=== PATIENT | female | born 1955 | race Caucasian/White ===

== ENCOUNTER 2016-12-07 15:46 | Emergency (ER) | payer MEDICARE ==
[2016-12-07 16:04] VITALS: O2SAT 95
--- NOTE | 2016-12-07 16:14 | ERPHSYRPT ---
- History of Present Illness Time Seen by Provider: 12/07/16 15:50 Source: patient, family, old records Exam Limitations: no limitations Patient Subjective Stated Complaint: PT STATES THAT SHE HAS HAD CONFUSION FOR AT LEAST A WEEK-STATES THAT SHE SPILLED HER MILKSHAKE TWICE TODAY-DENIES UNUSUAL PAIN-DENIES NUMBNES OR TINLGING Triage Nursing Assessment: PT ALERT ET ANSWERING QUESTIONS-PUPILS RESPONSIVE-PT MOVING ALL EXTREMITIES WITH EASE Physician History: patient has been falling asleep much more then usual; doesn't sleep well at night. patient spilled milk shke in car today when fell asleep while riding in car; states confused but good memory and no defecits; is on dialysis; recent fall with fracture right wrist; no headache or visual changes; hx of diabetic neuropathies getting worse; no fver; no travel; no CP or SOB Timing/Duration: today, week(s) (several episodes of falling asleep this week), intermittent Severity: moderate Modifying Factors: Improves With: nothing Associated Symptoms: denies symptoms Allergies/Adverse Reactions: albuterol Allergy (Mild, Verified 10/05/16 08:35) Home Medications: Allopurinol 100 mg [Zyloprim 100 mg] 100 mg PO DAILY 10/27/12 [History] Calcitriol 0.25 mg PO UD 10/27/12 [History] Clopidogrel Bisulfate 75 mg [PLAVIX 75 MG Tablet] 75 mg PO DAILY 10/27/12 [ History] Doxycycline Hyclate 100 mg [Vibramycin 100 MG] 100 mg PO BID 10/27/12 [ History] Fenofibrate Nanocrystallized [Tricor] 48 mg PO DAILY 10/27/12 [History] Insulin Glargine,Hum.rec.anlog [Lantus] 50 unit SQ BID 10/27/12 [History] Insulin Lispro [Humalog] 35 units SQ TID 10/27/12 [History] Lisinopril 10 mg PO HS 10/27/12 [History] Magnesium Oxide 400 mg [Mag-Ox 400] 400 mg PO BID 10/27/12 [History] Metoprolol Tartrate 50 mg PO BID 10/27/12 [History] Niacin/Simvastatin [Simcor 500-20 mg Tablet] 500 mg PO HS 10/27/12 [History] Nitroglycerin [Nitrostat] 0.4 mg SL PRN 10/27/12 [History] Omeprazole [Prilosec] 20 mg PO DAILY 10/27/12 [History] Raloxifene HCl 60 mg [Evista 60 MG] 60 mg PO DAILY 10/27/12 [History] Rosuvastatin Calcium [Crestor] 10 mg PO HS 10/27/12 [History] Hydrocodone Bit/Acetaminophen [Vicodin Es 7.5-750 mg Tablet] 1 each PO Q4-6HPRN PRN 09/27/16 [History] Aspirin 81 mg PO DAILY 10/05/16 [History] Hx Tetanus, Diphtheria Vaccination/Date Given: No Hx Influenza Vaccination/Date Given: Yes Hx Pneumococcal Vaccination/Date Given: Yes Immunizations Up to Date: Yes - Review of Systems Constitutional: Lethargy Eyes: No Symptoms Ears, Nose, & Throat: No Symptoms Respiratory: No Cough, No Dyspnea, No Wheezing Cardiac: No Chest Pain, No Palpitations, No Syncope Abdominal/Gastrointestinal: No Abdominal Pain, No Nausea, No Vomiting, No Diarrhea Genitourinary Symptoms: No Dysuria, No Hematuria, No Incontinence, No Flank Pain Musculoskeletal: Injury (right wrist a month ago), No Back Pain, No Neck Pain, No Fall (no recent falls) Skin: No Symptoms Neurological: Parasthesia, Sensory Changes (diabetic neuropathy fo ryears), No Dizziness, No Focal Weakness, No Headache, No Seizure, No Vertigo Psychological: No Symptoms Endocrine: No Symptoms Hematologic/Lymphatic: No Symptoms Immunological/Allergic: No Symptoms - Past Medical History Pertinent Past Medical History: Yes Neurological History: Peripheral Neuropathy ENT History: Cataracts Cardiac History: Angina, High Cholesterol, Hypertension, Myocardial Infarction ( [place]), Other Respiratory History: Bronchitis, COPD Endocrine Medical History: Diabetes Type II, Hyperthyroidism Musculoskeletal History: Arthritis GI Medical History: GERD, Gallbladder Disease History: Dialysis, Renal Disease Psycho-Social History: Depression Female Reproductive Disorders: No Pertinent History Other Medical History: CHIROPRACTOR TOLD HER 12 YEARS AGO THAT SHE HAD DETERIORATIING DISCS AND WOULD NEED SURGERY. SHE NEVER DID FOLLOW THROUGH WITH SURGERY. WEARS A C-PAP AT [facility]; CAN'T WALK ANY DISTANCE HOWEVER NOT ON HOME 02 YET. HAS HAD 4 [address] BY-PASS AND HAS 8 STENTS; PACEMAKER AND DEFIBRILLATOR; O.A. IN BOTH HANDS, LEFT MIDDLE FINGER TRIGGER FINGER; HX OF BILATERAL ANKLE FRACTURES AT SAME TIME; HAS SINCE REFRACTURED ANKLE; RECENT FX PATELLA LEFT SECONDARY TO FALL; HAS DIALYSIS 3X/WK FOR 4 HOURS/DAY - Past Surgical History Past Surgical History: Yes Neuro Surgical History: No Pertinent History Cardiac: CABG, Cardiac Stent, Internal Defibrillator, Pacemaker Respiratory: Other Gastrointestinal: Cholecystectomy Genitourinary: Other Musculoskeletal: Orthopedic Surgery Female Surgical History: No Pertinent History, Section Other Surgical History: carpal tunnel. a/v fistula, catheter for dialysis, In E.R. 09/27/16 with fx right lower arm/wrist, Left knee cap (fx,shattered per pt) - Social History Smoking Status: Current every day smoker How long have you smoked: 30 Exposure to second hand smoke: Yes Alcohol Use: None Drug Use: none Patient Lives Alone: No Significant Family History: diabetes, hypertension - Nursing Vital Signs Nursing Vital Signs: Initial Vital Signs Temperature 98.7 F Temperature Source Oral Pulse Rate 66 Respiratory Rate 26 Blood Pressure [] 109/44 Pain Intensity 5 - Physical Exam General Appearance: mild distress, alert, obese Eye Exam: PERRL/EOMI, eyes nml inspection, other (vision grossly ok), No photophobia Ears, Nose, Throat Exam: TMs normal, pharynx normal, dry mucous membranes, other (excoriation with induration and open lesion left ear helix; slight tender ; no d/c), No normal ENT inspection Neck Exam: normal inspection, non-tender, supple, full range of motion, JVD ( mild), No meningismus Respiratory Exam: airway intact, diminished breath sounds, crackles/rales (few basilar rales dry), wheezing, No normal breath sounds, No chest tenderness, No lungs clear, No respiratory distress Cardiovascular Exam: regular rate/rhythm, normal heart sounds, normal peripheral pulses, capillary refill 2-3 sec, No murmur, No friction rub Gastrointestinal/Abdomen Exam: soft, normal bowel sounds, No tenderness, No mass , No guarding, No pulsatile mass, No rebound, No organomegaly Pelvic Exam: deferred Rectal Exam: deferred Back Exam: normal inspection, normal range of motion, No CVA tenderness Extremity Exam: normal range of motion (except right wrist in splint), pelvis stable, pedal edema, other (dialysis shunt right arm), No normal inspection ( right wrsit in splint with deformity), No camron's sign, No tenderness Neurologic Exam: alert, oriented x 3, cooperative, 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 as tested, normal mood/affect, nml station & gait, No sensation nml (peripheral neuropathy) Skin Exam: normal color, warm, dry, other (venous stasis changes legs; palpation of left temporal area didn't reveal any tenderness or crepitus), No rash SpO2 Interpretation: normal SpO2: 95 Oxygen Delivery: Room Air - Course Nursing assessment & vital signs reviewed: Yes - Radiology Exams Chest X-ray Interpretation: Reviewed by me, Teleradiologist Report, Other (CM w CHF) - CT Exams Head CT Interpretation: Negative, Tele-radiologist Report, Other (incidental note of bubbles along left temporalis muscle - clinically non-tender; no crepitus; no lesion or laceration) Ordered Tests: Active Orders 24 hr Category Date Time Status Accucheck STAT Care 12/07/16 16:06 Active Director Cardiovascular STAT Care 12/07/16 16:06 Active IV Insertion STAT Care 12/07/16 16:06 Active Pulse Oximetry (ED) STAT Care 12/07/16 16:06 Active Re-Check Vital Signs STAT Care 12/07/16 16:06 Active CHEST 1 VIEW (PORTABLE) Stat Exams 12/07/16 16:06 Completed HEAD WITHOUT CONTRAST [CT] Stat Exams 12/07/16 16:07 Completed BLOOD CULTURE Stat Lab 12/07/16 16:15 Received CBC W DIFF Stat Lab 12/07/16 16:00 Completed CMP Stat Lab 12/07/16 16:00 Completed MAGNESIUM Stat Lab 12/07/16 16:00 Completed Manual Differential NC Stat Lab 12/07/16 16:00 Completed NT PRO BNP Stat Lab 12/07/16 16:00 Completed PROTIME WITH INR Stat Lab 12/07/16 16:00 Completed TROPONIN Stat Lab 12/07/16 16:00 Completed UA Stat Lab 12/07/16 16:06 Ordered Lab/Rad Data: Laboratory Result Diagrams 12/07/16 16:00 12/07/16 16:00 Laboratory Results 12/07/16 12/07/16 12/07/16 Range/Units 16:00 16:00 16:00 WBC (4.0-10.5) K/mm3 RBC (4.1-5.4) M/mm3 Hgb (12.0-16.0) gm/dl Hct (35-47) % MCV (78-100) fl MCH (26-32) pg MCHC (32-36) g/dl RDW (11.5-14.0) % Plt Count (150-450) K/mm3 MPV (6-9.5) fl INR 1.17 (0.8-3.0) Sodium 138 (136-145) mEq/L Potassium 4.6 (3.5-5.1) mEq/L Chloride 96 L (98-107) mEq/L Carbon Dioxide 26.2 (21-32) mEq/L Anion Gap 20.3 H (5-15) MEQ/L BUN 43 H (9-20) mg/dL Creatinine 5.67 H (0.55-1.30) mg/dl Estimated GFR 8 ML/MIN Glucose 198 H (70-110) MG/DL Calcium 6.9 L (8.5-10.1) mg/dL Magnesium 1.9 (1.8-2.4) mg/dL Total Bilirubin 0.6 (0.2-1.0) mg/dL AST 27 (15-37) U/L ALT 14 (12-78) U/L Alkaline Phosphatase 375 H (46-116) U/L Troponin I 0.017 (0.000-0.056) ng/ml NT-Pro-B Natriuret Pep > 24722 H (0-125) pg/ml Serum Total Protein 7.1 (6.4-8.2) gm/dL Albumin 3.5 (3.4-5.0) g/dL 12/07/16 Range/Units 16:00 WBC 6.0 (4.0-10.5) K/mm3 RBC 2.97 L (4.1-5.4) M/mm3 Hgb 10.1 L (12.0-16.0) gm/dl Hct 31.0 L (35-47) % MCV 104.4 H (78-100) fl MCH 34.0 H (26-32) pg MCHC 32.6 (32-36) g/dl RDW 16.3 H (11.5-14.0) % Plt Count 62 L (150-450) K/mm3 MPV 11.8 H (6-9.5) fl INR (0.8-3.0) Sodium (136-145) mEq/L Potassium (3.5-5.1) mEq/L Chloride (98-107) mEq/L Carbon Dioxide (21-32) mEq/L Anion Gap (5-15) MEQ/L BUN (9-20) mg/dL Creatinine (0.55-1.30) mg/dl Estimated GFR ML/MIN Glucose (70-110) MG/DL Calcium (8.5-10.1) mg/dL Magnesium (1.8-2.4) mg/dL Total Bilirubin (0.2-1.0) mg/dL AST (15-37) U/L ALT (12-78) U/L Alkaline Phosphatase (46-116) U/L Troponin I (0.000-0.056) ng/ml NT-Pro-B Natriuret Pep (0-125) pg/ml Serum Total Protein (6.4-8.2) gm/dL Albumin (3.4-5.0) g/dL reviewed - Progress Progress: improved, re-examined (after CT) Progress Note: 12/07/16 16:16 family at bedside; lab and cT pending ; will recheck 12/07/16 16:[address] no change; CT pending; lab pending 12/07/16 17:17 recheck; no correlation between bubbles on CT and left temporal area; non-tneder ; no lesion; no crepitus; patient sitting up; awake and alert; ; labs shoe elevated BS 198; BUN =43; Cr 5.67; Alk Phos = 375; CT head no bleed or pressure changes 12/07/16 18:07 rechecked patient; sitting up awake; no distress; VS ok; discussed findings; Consulted DR Soto for DR Goss; Patient due for dialysis tomorrow; treatment plan to get dialysis and follow up with Dr Goss recheck; continue meds Discussed with .: Other (Dr Soto consulted) Will see patient in: office Counseled pt/family regarding: lab results, diagnosis, need for follow-up, rad results, smoking cessation - Departure Time of Disposition: 18:10 Departure Disposition: Home Clinical Impression: CHF (congestive heart failure), Fracture of right wrist, Left ear injury, Dementia, Renal failure Condition: Stable Critical Care Time: No Referrals: NATE AGARWAL [Primary Care Provider] - Instructions: Heart Failure, Alzheimer's Disease Additional Instructions: get dialysis in am; call Dr Goss for recheck; continue home meds Follow-up with family doctor as directed. Call for appointment. Return if any problems. If you smoke please stop. Call or follow up with your family doctor for assistance if you need it to stop. Please wear your seatbelt when driving. Have a nice day. Thank you for allowing us to participate in your care today. :o) Dr Aung Irizarry
[2016-12-07 16:27] LABS: Mean Cell Volume 104.4 fl (78-100); Mean Platelet Volume 11.8 fl (6-9.5); Platelet Count 62 K/mm3 (150-450); Red Blood Count 2.97 M/mm3 (4.1-5.4); Red Cell Distribution Width 16.3 % (11.5-14.0)
[2016-12-07 16:36] LABS: INR 1.17 (0.8-3.0)
[2016-12-07 16:45] LABS: ALBUMIN 3.5 g/dL (3.4-5.0); ANION GAP 20.3 MEQ/L (5-15); BILIRUBIN,TOTAL 0.6 mg/dL (0.2-1.0); Carbon Dioxide 26.2 mEq/L (21-32); MAGNESIUM 1.9 mg/dL (1.8-2.4); Potassium 4.6 mEq/L (3.5-5.1); Total Protein 7.1 gm/dL (6.4-8.2)
--- NOTE | 2016-12-07 16:51 | XRAY ---
Indication: Confusion. Generalized weakness. Comparison: November 23, 2014. AP chest again demonstrates cardiomegaly with previous CABG surgery. New central vascular congestion concerning for mild/early cardiac decompensation. Superimposed pneumonia not completely excluded. No consolidation or large effusion. Bony thorax intact again with mild osteopenia and degenerative changes. Impression: Stable cardiomegaly with new vascular congestion concerning for mild/early cardiac decompensation. Superimposed pneumonia not completely excluded.
[2016-12-07 16:54] LABS: TROPONIN 0.017 ng/ml (0.000-0.056)
--- NOTE | 2016-12-07 17:00 | XRAY ---
Indication: Confusion. Generalized weakness. Multiple contiguous axial images obtained through the head without contrast. Comparison: None Images through the base of the brain degraded by motion artifact even with repeat CT. Age-appropriate global atrophy. No acute intracranial hemorrhage, abnormal extra-axial fluid collection, or mass effect. Fourth ventricle midline without hydrocephalus. Velasco-white matter differentiation preserved. Bony calvarium intact. Visualized paranasal sinuses and mastoid air cells are pneumatized and clear. Several air bubbles seen along the course of the left temporalis muscle. Impression: 1. Base of the brain limited by motion artifact. 2. No acute intracranial abnormalities. 3. Incidental air bubbles along the course of the left temporalis muscle either posttraumatic versus gas producing infection. CTDI 67.22
[2016-12-07 18:22] VITALS: BP 115/69; PULSE 60
[2016-12-07 18:26] LABS: Bacteria PACKED /HPF (NEGATIVE); COMPLETE URINE MICROSCOPIC? YES; Collection Type CLEAN CATCH; Epithelial Cells MANY /HPF (FEW); Mucus MODERATE /HPF (NEGATIVE); WBC >100 /HPF (0-5)
[2016-12-07 19:29] LABS: ANISOCYTOSIS 1+; Eosinophil 2 % (0.00-3.0); Macrocytosis 1+; Platelet Estimate DECREASED (NORMAL); Total Cells Counted 100
== END 2016-12-07 18:18 | disposition home or self-care (01) ==
LOC: ED 15:46
DX: I50.9 Heart failure, unspecified (principal); S62.101A Fracture of unspecified carpal bone, right wrist, initial encounter for closed fracture; S09.91XA Unspecified injury of ear, initial encounter; F03.90 Unspecified dementia, unspecified severity, without behavioral disturbance, psychotic disturbance, mood disturbance, and anxiety; N19 Unspecified kidney failure; Z79.4 Long term (current) use of insulin; Z79.899 Other long term (current) drug therapy; E78.00 Pure hypercholesterolemia, unspecified; I10 Essential (primary) hypertension; I21.3 ST elevation (STEMI) myocardial infarction of unspecified site; E11.9 Type 2 diabetes mellitus without complications; E05.90 Thyrotoxicosis, unspecified without thyrotoxic crisis or storm; Z95.1 Presence of aortocoronary bypass graft; Z98.61 Coronary angioplasty status; Z95.0 Presence of cardiac pacemaker
CPT/HCPCS: 36000; 36415; 70450; 71010; 80053; 81000; 82962; 83735; 83880; 84484; 85025; 85610; 87040; 93041; 99284

== ENCOUNTER 2016-12-27 13:35 | Emergency (ER) | payer MEDICARE ==
[2016-12-27 13:45] VITALS: BP 107/69; PULSE 63; O2SAT 98
[2016-12-27] MEDS ORDERED: MORPHINE SULFATE 2 MG INJ IM ONE (13:55)
--- NOTE | 2016-12-27 13:59 | ERPHSYRPT ---
- History of Present Illness Time Seen by Provider: 12/27/16 13:55 Source: patient Patient Subjective Stated Complaint: pt alert and orietned x3, states she had surgery on foot a week agoand is not supposed to put pressure on it and she stepped down and then heard a pop and is now in extreme pain Triage Nursing Assessment: pt alert and oriented x3, lung soudns clear diminished, paid and buring in right foot, has a large boot over surgical area with sock covering , has feeling in toes responisve to stimuli on bottom of foot Physician History: Patient recently had right foot I&D of right foot for infection. Patient is to be non weight bearing,but try to walk on her toes to go the bathroom. States when she pivoted, she felt pain to the right foot/ankle area. Her right foot currently is wrapped so patient does not know if she had any swelling to the area. Denies any other injuries. Method of Injury: twisted Occurred: just prior to arrival Quality: burning, sharpness Severity of Pain-Max: moderate Severity of Pain-Current: moderate Lower Extremities Pain: foot: right, ankle: right Modifying Factors: Improves With: immobilization (improves), movement (worsens) Associated Symptoms: unable to bear weight Allergies/Adverse Reactions: albuterol Allergy (Mild, Verified 10/05/16 08:35) Home Medications: Allopurinol 100 mg [Zyloprim 100 mg] 100 mg PO DAILY 10/27/12 [History] Calcitriol 0.25 mg PO UD 10/27/12 [History] Clopidogrel Bisulfate 75 mg [PLAVIX 75 MG Tablet] 75 mg PO DAILY 10/27/12 [ History] Doxycycline Hyclate 100 mg [Vibramycin 100 MG] 100 mg PO BID 10/27/12 [ History] Fenofibrate Nanocrystallized [Tricor] 48 mg PO DAILY 10/27/12 [History] Insulin Glargine,Hum.rec.anlog [Lantus] 50 unit SQ BID 10/27/12 [History] Insulin Lispro [Humalog] 35 units SQ TID 10/27/12 [History] Lisinopril 10 mg PO HS 10/27/12 [History] Magnesium Oxide 400 mg [Mag-Ox 400] 400 mg PO BID 10/27/12 [History] Metoprolol Tartrate 50 mg PO BID 10/27/12 [History] Niacin/Simvastatin [Simcor 500-20 mg Tablet] 500 mg PO HS 10/27/12 [History] Nitroglycerin [Nitrostat] 0.4 mg SL PRN 10/27/12 [History] Omeprazole [Prilosec] 20 mg PO DAILY 10/27/12 [History] Raloxifene HCl 60 mg [Evista 60 MG] 60 mg PO DAILY 10/27/12 [History] Rosuvastatin Calcium [Crestor] 10 mg PO HS 10/27/12 [History] Hydrocodone Bit/Acetaminophen [Vicodin Es 7.5-750 mg Tablet] 1 each PO Q4-6HPRN PRN 09/27/16 [History] Aspirin 81 mg PO DAILY 10/05/16 [History] Hx Tetanus, Diphtheria Vaccination/Date Given: Yes Hx Influenza Vaccination/Date Given: Yes Hx Pneumococcal Vaccination/Date Given: Yes Immunizations Up to Date: Yes - Past Medical History Pertinent Past Medical History: Yes Neurological History: Peripheral Neuropathy ENT History: Cataracts Cardiac History: Angina, High Cholesterol, Hypertension, Myocardial Infarction ( [place]), Other Respiratory History: Bronchitis, COPD Endocrine Medical History: Diabetes Type II, Hyperthyroidism Musculoskeletal History: Arthritis GI Medical History: GERD, Gallbladder Disease History: Dialysis, Renal Disease Psycho-Social History: Depression Female Reproductive Disorders: No Pertinent History Other Medical History: CHIROPRACTOR TOLD HER 12 YEARS AGO THAT SHE HAD DETERIORATIING DISCS AND WOULD NEED SURGERY. SHE NEVER DID FOLLOW THROUGH WITH SURGERY. WEARS A C-PAP AT [facility]; CAN'T WALK ANY DISTANCE HOWEVER NOT ON HOME 02 YET. HAS HAD 4 WAY BY-PASS AND HAS 8 STENTS; PACEMAKER AND DEFIBRILLATOR; O.A. IN BOTH HANDS, LEFT MIDDLE FINGER TRIGGER FINGER; HX OF BILATERAL ANKLE FRACTURES AT SAME TIME; HAS SINCE REFRACTURED ANKLE; RECENT FX PATELLA LEFT SECONDARY TO FALL; HAS DIALYSIS 3X/WK FOR 4 HOURS/DAY - Past Surgical History Past Surgical History: Yes Neuro Surgical History: No Pertinent History Cardiac: CABG, Cardiac Stent, Internal Defibrillator, Pacemaker Respiratory: Other Gastrointestinal: Cholecystectomy Genitourinary: Other Musculoskeletal: Orthopedic Surgery Female Surgical History: No Pertinent History, Section Other Surgical History: carpal tunnel. a/v fistula, catheter for dialysis, In E.R. 09/27/16 with fx right lower arm/wrist, Left knee cap (fx,shattered per pt) - Social History Smoking Status: Current every day smoker How long have you smoked: 30 Exposure to second hand smoke: Yes Alcohol Use: None Drug Use: none Patient Lives Alone: No Significant Family History: diabetes, hypertension - Nursing Vital Signs Nursing Vital Signs: Initial Vital Signs Temperature 97.7 F Temperature Source Oral Pulse Rate 63 Respiratory Rate 16 Blood Pressure [Left Arm] 107/69 Pain Intensity 10 - Physical Exam General Appearance: alert Eyes, Ears, Nose, Throat Exam: moist mucous membranes Neck Exam: non-tender, supple Cardiovascular/Respiratory Exam: chest non-tender, normal breath sounds, regular rate/rhythm, no respiratory distress Gastrointestinal/Abdominal Exam: non-tender, guarding Back Exam: normal inspection, No vertebral tenderness Ankle Exam: right ankle: limited range of motion, pain (lat. malleolus and posteriorly), soft tissue tenderness, swelling Foot Exam: right foot: pain (lat. hind foot), soft tissue tenderness (lat. hind foot), swelling Neuro/Tendon Exam: normal sensation, normal motor functions Mental Status Exam: alert, oriented x 3, cooperative Skin Exam: normal color, warm, dry SpO2 Interpretation: normal SpO2: 98 Oxygen Delivery: Room Air Ordered Tests: Active Orders 24 hr Category Date Time Status ANKLE (3 VIEWS) Stat Exams 12/27/16 13:59 Taken FOOT (MINIMUM 3 VIEWS) Stat Exams 12/27/16 13:54 Taken Medication Summary Discontinued Medications Generic Name Dose Route Start Last Admin Trade Name Margy PRN Reason Stop Dose Admin Morphine Sulfate 2 mg 12/27/16 13:55 12/27/16 14:05 Morphine Sulfate 2 Mg Inj IM 12/27/16 13:56 2 mg STAT ONE Administration Morphine Sulfate Confirm 12/27/16 14:03 Morphine Sulfate 2 Mg Inj Administered 12/27/16 14:04 Dose 2 mg .ROUTE .STK-MED ONE - Progress Progress: improved Progress Note: 12/27/16 14:59 Pt. given Morphine IM with good relief of her symptoms. Counseled pt/family regarding: diagnosis, rad results - Departure Time of Disposition: 14:59 Departure Disposition: Home Clinical Impression: Right ankle sprain, Right foot strain Condition: Stable Critical Care Time: No Instructions: Ankle Sprain Additional Instructions: Rest, ice, elevate, no weight bearing to decrease swelling/pain. Motrin 800mg every 8hrs with food Return for worse pain, swelling, numbness, tingling or any problems.
[2016-12-27] MEDS ORDERED: MORPHINE SULFATE 2 MG INJ ONE (14:03)
--- NOTE | 2016-12-27 21:07 | XRAY ---
Indication: Pain following injury. Comparison: October 20, 2013. 3 nonweightbearing views of the right foot demonstrates new posterior heel soft tissue deformity and mild forefoot soft tissue swelling presumed related to injury. Again osteopenia, posterior/plantar heel spurs, first MTP bunion deformity, lower leg vascular clips, and scattered vascular calcifications. Remaining right foot unremarkable.
--- NOTE | 2016-12-27 21:09 | XRAY ---
Indication: Pain following injury. Comparison: October 20, 2013. 3 views of the right ankle demonstrates new posterior heel soft tissue deformity presumed related to injury. Again posterior/plantar heel spurs, lower leg vascular clips, and scattered vascular calcifications. No other bony, articular, or soft tissue abnormalities.
== END 2016-12-27 15:13 | disposition home or self-care (01) ==
LOC: ED 13:35
DX: S93.401A Sprain of unspecified ligament of right ankle, initial encounter (principal); S93.601A Unspecified sprain of right foot, initial encounter; X50.1XXA Overexertion from prolonged static or awkward postures, initial encounter; Z79.899 Other long term (current) drug therapy; Z79.4 Long term (current) use of insulin; Z95.1 Presence of aortocoronary bypass graft; Z98.61 Coronary angioplasty status
CPT/HCPCS: 73610; 73630; 96372; 99283; J2270

== ENCOUNTER 2017-06-06 02:32 | Observation (INO) | payer MEDICARE ==
[2017-06-06] MEDS ORDERED: BENADRYL 50 MG/ML IV ONE (03:12)
[2017-06-06] MEDS ORDERED: Pepcid 20 MG VIAL IV ONE ×2 (03:12→03:19)
[2017-06-06] MEDS ORDERED: Hydromorphone 1 mg/ml Ampule IV ONE (03:12)
[2017-06-06] MEDS ORDERED: Zofran 4 MG/2 ML VIAL IV ONE (03:12)
--- NOTE | 2017-06-06 03:12 | ERPHSYRPT ---
- History of Present Illness Time Seen by Provider: 06/06/17 03:10 Historian: patient, family Exam Limitations: no limitations Physician History: pt had uneventful dialysis today and later developed pain with dry heaves; Timing/Duration: today Abdominal Pain Onset Location: RLQ, flank Pain Radiation: RLQ, flank Severity of Pain-Max: moderate Severity of Pain-Current: moderate Modifying Factors: Improves With: nothing Associated Symptoms: back, nausea, vomiting Previous symptoms: no prior history Allergies/Adverse Reactions: albuterol Allergy (Mild, Verified 10/05/16 08:35) Home Medications: Allopurinol 100 mg [Zyloprim 100 mg] 100 mg PO DAILY 10/27/12 [History] Calcitriol 0.25 mg PO UD 10/27/12 [History] Clopidogrel Bisulfate 75 mg [PLAVIX 75 MG Tablet] 75 mg PO DAILY 10/27/12 [ History] Doxycycline Hyclate 100 mg [Vibramycin 100 MG] 100 mg PO BID 10/27/12 [ History] Fenofibrate Nanocrystallized [Tricor] 48 mg PO DAILY 10/27/12 [History] Insulin Glargine,Hum.rec.anlog [Lantus] 50 unit SQ BID 10/27/12 [History] Insulin Lispro [Humalog] 35 units SQ TID 10/27/12 [History] Lisinopril 10 mg PO HS 10/27/12 [History] Magnesium Oxide 400 mg [Mag-Ox 400] 400 mg PO BID 10/27/12 [History] Metoprolol Tartrate 50 mg PO BID 10/27/12 [History] Niacin/Simvastatin [Simcor 500-20 mg Tablet] 500 mg PO HS 10/27/12 [History] Nitroglycerin [Nitrostat] 0.4 mg SL PRN 10/27/12 [History] Omeprazole [Prilosec] 20 mg PO DAILY 10/27/12 [History] Raloxifene HCl 60 mg [Evista 60 MG] 60 mg PO DAILY 10/27/12 [History] Rosuvastatin Calcium [Crestor] 10 mg PO HS 10/27/12 [History] Hydrocodone Bit/Acetaminophen [Vicodin Es 7.5-750 mg Tablet] 1 each PO Q4-6HPRN PRN 09/27/16 [History] Aspirin 81 mg PO DAILY 10/05/16 [History] Hx Tetanus, Diphtheria Vaccination/Date Given: Yes Hx Influenza Vaccination/Date Given: Yes Hx Pneumococcal Vaccination/Date Given: Yes - Review of Systems Constitutional: No Fever, No Chills Eyes: No Symptoms Ears, Nose, & Throat: No Symptoms Respiratory: No Cough, No Dyspnea Cardiac: No Chest Pain, No Edema, No Syncope Abdominal/Gastrointestinal: Abdominal Pain, Nausea, Vomiting, No Diarrhea Genitourinary Symptoms: No Dysuria Musculoskeletal: No Back Pain, No Neck Pain Skin: No Rash Neurological: No Dizziness, No Focal Weakness, No Sensory Changes Psychological: No Symptoms Endocrine: No Symptoms All Other Systems: Reviewed and Negative - Past Medical History Pertinent Past Medical History: Yes Neurological History: Peripheral Neuropathy ENT History: Cataracts Cardiac History: Angina, High Cholesterol, Hypertension, Myocardial Infarction ( [place]), Other Respiratory History: Bronchitis, COPD Endocrine Medical History: Diabetes Type II, Hyperthyroidism Musculoskeletal History: Arthritis GI Medical History: GERD, Gallbladder Disease History: Dialysis, Renal Disease Psycho-Social History: Depression Female Reproductive Disorders: No Pertinent History Other Medical History: CHIROPRACTOR TOLD HER 12 YEARS AGO THAT SHE HAD DETERIORATIING DISCS AND WOULD NEED SURGERY. SHE NEVER DID FOLLOW THROUGH WITH SURGERY. WEARS A C-PAP AT [facility]; CAN'T WALK ANY DISTANCE HOWEVER NOT ON HOME 02 YET. HAS HAD 4 WAY BY-PASS AND HAS 8 STENTS; PACEMAKER AND DEFIBRILLATOR; O.A. IN BOTH HANDS, LEFT MIDDLE FINGER TRIGGER FINGER; HX OF BILATERAL ANKLE FRACTURES AT SAME TIME; HAS SINCE REFRACTURED ANKLE; RECENT FX PATELLA LEFT SECONDARY TO FALL; HAS DIALYSIS 3X/WK FOR 4 HOURS/DAY - Past Surgical History Past Surgical History: Yes Neuro Surgical History: No Pertinent History Cardiac: CABG, Cardiac Stent, Internal Defibrillator, Pacemaker Respiratory: Other Gastrointestinal: Cholecystectomy Genitourinary: Other Musculoskeletal: Orthopedic Surgery Female Surgical History: No Pertinent History, Section Other Surgical History: carpal tunnel. a/v fistula, catheter for dialysis, In E.R. 09/27/16 with fx right lower arm/wrist, Left knee cap (fx,shattered per pt) - Social History Smoking Status: Current every day smoker How long have you smoked: 30 Exposure to second hand smoke: Yes Alcohol Use: None Drug Use: none Patient Lives Alone: No Significant Family History: diabetes, hypertension - Nursing Vital Signs Nursing Vital Signs: Initial Vital Signs Temperature 97.4 F 06/06/17 03:20 Pulse Rate 90 06/06/17 03:20 Respiratory Rate 24 06/06/17 03:20 Blood Pressure 160/70 06/06/17 03:20 O2 Sat by Pulse Oximetry 96 06/06/17 03:20 Pain Scale Pain Intensity 10 - Physical Exam General Appearance: no apparent distress, alert Eye Exam: PERRL/EOMI, eyes nml inspection Ears, Nose, Throat Exam: normal ENT inspection, pharynx normal, moist mucous membranes Neck Exam: normal inspection, non-tender, supple, full range of motion Respiratory Exam: normal breath sounds, lungs clear, No respiratory distress Cardiovascular Exam: regular rate/rhythm, normal heart sounds Gastrointestinal/Abdomen Exam: soft, No tenderness, No mass Back Exam: normal inspection, normal range of motion, No CVA tenderness, No vertebral tenderness Extremity Exam: normal inspection, normal range of motion, pelvis stable Neurologic Exam: alert, oriented x 3, cooperative, normal mood/affect, nml cerebellar function, sensation nml, No motor deficits Skin Exam: normal color, warm, dry - Course Nursing assessment & vital signs reviewed: Yes EKG Interpreted by Me: Sinus Rhythm, NORMAL AXIS, Non-specific ST Changes, Other (poor r wave progression) Ordered Tests: Active Orders 24 hr Category Date Time Status Clean Catch Urine Specimen STAT Care 06/06/17 03:12 Active EKG-ER Only STAT Care 06/06/17 03:12 Active IV Insertion STAT Care 06/06/17 03:12 Active ABDOMEN AND PELVIS W/0 CONTRAS [CT] Stat Exams 06/06/17 03:13 Taken AMYLASE Stat Lab 06/06/17 03:15 Completed BNP [NT PRO BNP] Stat Lab 06/06/17 04:32 Completed CBC W DIFF Stat Lab 06/06/17 03:15 Completed CMP Stat Lab 06/06/17 03:15 Completed CULTURE,URINE Stat Lab 06/06/17 03:40 Received HCG,QUALITATIVE SERUM Stat Lab 06/06/17 03:15 Completed LIPASE Stat Lab 06/06/17 03:15 Completed Lactic Acid Stat Lab 06/06/17 03:20 Completed Manual Differential NC Stat Lab 06/06/17 03:15 Completed Occult Blood,Stool Other Stat Lab 06/06/17 03:13 Uncollected TROPONIN Q3H Lab 06/06/17 03:15 Completed TROPONIN Q3H Lab 06/06/17 06:15 Ordered TROPONIN Q3H Lab 06/06/17 09:15 Ordered TROPONIN Q3H Lab 06/06/17 12:15 Ordered TROPONIN Q3H Lab 06/06/17 15:15 Ordered UA W/ MICROSCOPIC Stat Lab 06/06/17 03:40 Completed Medication Summary Generic Name Dose Route Start Last Admin Trade Name Freq PRN Reason Stop Dose Admin Sodium Chloride 1,000 mls @ 50 mls/hr 06/06/17 03:15 06/06/17 03:23 Sodium Chloride 0.9% 1000 Ml IV 07/06/17 03:14 50 mls/hr .Q20H OLENA Administration Ceftriaxone Sodium/Dextrose 1 g in 50 mls @ 100 mls/hr 06/06/17 05:01 05:13 Rocephin 1 Gm-D5w 50 Ml Bag IV 06/06/17 05:30 100 mls/hr STAT STA Administration Discontinued Medications Generic Name Dose Route Start Last Admin Trade Name Freq PRN Reason Stop Dose Admin Diphenhydramine HCl 25 mg 06/06/17 03:12 06/06/17 03:23 Benadryl 50 Mg/Ml IV 06/06/17 03:13 25 mg STAT ONE Administration Diphenhydramine HCl Confirm 06/06/17 03:19 Benadryl 50 Mg/Ml Administered 06/06/17 03:20 Dose 50 mg .ROUTE .STK-MED ONE Famotidine 20 mg 06/06/17 03:12 06/06/17 03:23 Pepcid 20 Mg Vial IV 06/06/17 03:13 20 mg STAT ONE Administration Famotidine Confirm 06/06/17 03:19 Pepcid 20 Mg Vial Administered 06/06/17 03:20 Dose 20 mg IV .STK-MED ONE Hydromorphone HCl 0.5 mg 06/06/17 03:12 06/06/17 03:23 Hydromorphone 1 Mg/Ml Ampule IV 06/06/17 03:13 0.5 mg STAT ONE Administration Hydromorphone HCl Confirm 06/06/17 03:20 Hydromorphone 1 Mg/Ml Ampule Administered 06/06/17 03:21 Dose 1 mg .ROUTE .STK-MED ONE Ceftriaxone Sodium/Dextrose Confirm 06/06/17 05:10 Rocephin 1 Gm-D5w 50 Ml Bag Administered 06/06/17 05:11 Dose 1 g in 50 mls @ ud IV .STK-MED ONE Ondansetron HCl 4 mg 06/06/17 03:12 06/06/17 03:23 Zofran 4 Mg/2 Ml Vial IV 06/06/17 03:13 4 mg STAT ONE Administration Ondansetron HCl Confirm 06/06/17 03:19 Zofran 4 Mg/2 Ml Vial Administered 06/06/17 03:20 Dose 4 mg .ROUTE .STK-MED ONE Lab/Rad Data: Laboratory Result Diagrams 06/06/17 03:15 06/06/17 03:15 Laboratory Results 06/06/17 06/06/17 06/06/17 Range/Units 04:32 03:40 03:20 WBC (4.0-10.5) K/mm3 RBC (4.1-5.4) M/mm3 Hgb (12.0-16.0) gm/dl Hct (35-47) % MCV (78-100) fl MCH (26-32) pg MCHC (32-36) g/dl RDW (11.5-14.0) % Plt Count (150-450) K/mm3 MPV (6-9.5) fl Segmented Neutrophils (36.0-66.0) % Lymphocytes (Manual) (24-44) % Monocytes (Manual) (0.0-12.0) % Differential Comment Platelet Estimate (NORMAL) Sodium (136-145) mEq/L Potassium (3.5-5.1) mEq/L Chloride (98-107) mEq/L Carbon Dioxide (21-32) mEq/L Anion Gap (5-15) MEQ/L BUN (9-20) mg/dL Creatinine (0.55-1.30) mg/dl Estimated GFR ML/MIN Glucose (70-110) MG/DL Lactic Acid 1.7 (0.4-2.0) Calcium (8.5-10.1) mg/dL Total Bilirubin (0.2-1.0) mg/dL AST (15-37) U/L ALT (12-78) U/L Alkaline Phosphatase (46-116) U/L Troponin I (0.000-0.056) ng/ml NT-Pro-B Natriuret Pep > 04268 H (0-125) pg/ml Serum Total Protein (6.4-8.2) gm/dL Albumin (3.4-5.0) g/dL Amylase (25-115) U/L Lipase (73-393) U/L Ur Collection Type CLEAN CATCH Urine Color BROWN (YELLOW) Urine Appearance CLOUDY (CLEAR) Urine pH 8.0 (5-6) Ur Specific Exmore 1.010 (1.005-1.025) Urine Protein 500 (Negative) Urine Ketones NEGATIVE (NEGATIVE) Urine Blood 250 (0-5) Eduardo/ul Urine Nitrite NEGATIVE (NEGATIVE) Urine Bilirubin NEGATIVE (NEGATIVE) Urine Urobilinogen NORMAL (0-1) mg/dL Ur Leukocyte Esterase 2+ (NEGATIVE) Urine Microscopic RBC 25-50 (0-2) /HPF Urine Microscopic WBC >100 (0-5) /HPF Ur Epithelial Cells FEW (FEW) /HPF Urine Bacteria MODERATE (NEGATIVE) /HPF Urine Mucus MANY (NEGATIVE) /HPF Urine Glucose NEGATIVE (NEGATIVE) mg/dL Specimen Received 06/06/17:0340 06/06/17 06/06/17 06/06/17 Range/Units 03:15 03:15 03:15 WBC 10.0 (4.0-10.5) K/mm3 RBC 3.98 L (4.1-5.4) M/mm3 Hgb 11.9 L (12.0-16.0) gm/dl Hct 38.0 (35-47) % MCV 95.5 (78-100) fl MCH 29.8 (26-32) pg MCHC 31.3 L (32-36) g/dl RDW 17.1 H (11.5-14.0) % Plt Count 53 L (150-450) K/mm3 MPV 12.6 H (6-9.5) fl Segmented Neutrophils 82 H (36.0-66.0) % Lymphocytes (Manual) 9 L (24-44) % Monocytes (Manual) 9 (0.0-12.0) % Differential Comment NORMAL Platelet Estimate DECREASED (NORMAL) Sodium 133 L (136-145) mEq/L Potassium 5.0 (3.5-5.1) mEq/L Chloride 95 L (98-107) mEq/L Carbon Dioxide 27.0 (21-32) mEq/L Anion Gap 17.2 H (5-15) MEQ/L BUN 30 H (9-20) mg/dL Creatinine 4.77 H (0.55-1.30) mg/dl Estimated GFR 10 ML/MIN Glucose 153 H (70-110) MG/DL Lactic Acid (0.4-2.0) Calcium 9.1 (8.5-10.1) mg/dL Total Bilirubin 1.00 (0.2-1.0) mg/dL AST 36 (15-37) U/L ALT 13 (12-78) U/L Alkaline Phosphatase 222 H (46-116) U/L Troponin I 0.022 (0.000-0.056) ng/ml NT-Pro-B Natriuret Pep (0-125) pg/ml Serum Total Protein 7.5 (6.4-8.2) gm/dL Albumin 3.5 (3.4-5.0) g/dL Amylase 52 (25-115) U/L Lipase 87 (73-393) U/L Ur Collection Type Urine Color (YELLOW) Urine Appearance (CLEAR) Urine pH (5-6) Ur Specific Exmore (1.005-1.025) Urine Protein (Negative) Urine Ketones (NEGATIVE) Urine Blood (0-5) Eduardo/ul Urine Nitrite (NEGATIVE) Urine Bilirubin (NEGATIVE) Urine Urobilinogen (0-1) mg/dL Ur Leukocyte Esterase (NEGATIVE) Urine Microscopic RBC (0-2) /HPF Urine Microscopic WBC (0-5) /HPF Ur Epithelial Cells (FEW) /HPF Urine Bacteria (NEGATIVE) /HPF Urine Mucus (NEGATIVE) /HPF Urine Glucose (NEGATIVE) mg/dL Specimen Received - Progress Progress: improved, re-examined Progress Note: 06/06/17 05:28 contacted [facility] for transfer , which was effectively declined by ER as the Dr felt the pt could be trended on troponins here; I explained that our Dr.s are not in house - we have no hospitalists and that we felt best for the pt to be where there were cardiologists available and renal Drs in this case . Dr. Rolle was contacted and she accepted the pt here - will place in ICU. Discussed with : Sariah (dr rolle accepted pt her at [place]), Other ([facility] ER - preferred for us to keep pt. ) Will see patient in: hospital (observation) Counseled pt/family regarding: lab results, diagnosis, need for follow-up, rad results - Departure Time of Disposition: 05:32 Departure Disposition: Observation Clinical Impression: intractable vomiting SP dialysis, Elevated troponin Condition: Good Critical Care Time: No Referrals: NATE AGARWAL [Primary Care Provider] -
[2017-06-06] MEDS ORDERED: Zofran 4 MG/2 ML VIAL ONE (03:19)
[2017-06-06] MEDS ORDERED: BENADRYL 50 MG/ML ONE (03:19)
[2017-06-06] MEDS ORDERED: Sodium Chloride 0.9% 1000 ML 1,000 ML ONE (03:20)
[2017-06-06] MEDS ORDERED: Hydromorphone 1 mg/ml Ampule ONE (03:20)
[2017-06-06] MEDS: Sodium Chloride 0.9% 1000 ML 1,000 ML IV SCH ×2 (03:23→22:39)
[2017-06-06 03:24] LABS: Mean Cell Volume 95.5 fl (78-100); Mean Platelet Volume 12.6 fl (6-9.5); Platelet Count 53 K/mm3 (150-450); Red Blood Count 3.98 M/mm3 (4.1-5.4); Red Cell Distribution Width 17.1 % (11.5-14.0)
[2017-06-06 03:46] LABS: ALBUMIN 3.5 g/dL (3.4-5.0)
[2017-06-06 03:53] LABS: Mean Corpuscular Hemoglobin 29.8 pg (26-32)
[2017-06-06 04:01] LABS: Collection Type CLEAN CATCH; Leukocyte Esterase 2+ (NEGATIVE)
[2017-06-06 04:02] LABS: ADD URINE CULTURE? YES (NO); Bacteria MODERATE /HPF (NEGATIVE); Bilirubin NEGATIVE (NEGATIVE); Blood 250 Ery/ul (0-5); COMPLETE URINE MICROSCOPIC? YES; Epithelial Cells FEW /HPF (FEW); Glucose NEGATIVE (NEGATIVE); Mucus MANY /HPF (NEGATIVE); WBC >100 /HPF (0-5)
[2017-06-06 04:07] LABS: ANION GAP 17.2 MEQ/L (5-15); Total Protein 7.5 gm/dL (6.4-8.2)
[2017-06-06 04:31] LABS: Platelet Estimate DECREASED (NORMAL); Total Cells Counted 100
[2017-06-06] MEDS ORDERED: ROCEPHIN 1 Gm-D5w 50 ml Bag** 1 G/50 ML IVPB IV STA (05:01)
[2017-06-06] MEDS ORDERED: ROCEPHIN 1 Gm-D5w 50 ml Bag** 1 G/50 ML IVPB IV ONE (05:10)
[2017-06-06] MEDS ORDERED: Zofran 4 MG/2 ML VIAL IV PRN (06:19)
[2017-06-06] MEDS ORDERED: MILK OF MAGNESIA 30 ML PO PRN (06:19)
[2017-06-06] MEDS ORDERED: TYLENOL 325 MG PO PRN (06:19)
[2017-06-06] MEDS ORDERED: MAALOX ES 30 ML UNIT DOSE PO PRN (06:19)
[2017-06-06] MEDS ORDERED: Senokot-S Tablet PO PRN (06:19)
[2017-06-06] MEDS ORDERED: NovoLIN R SQ PRN (06:19)
--- NOTE | 2017-06-06 08:14 | XRAY ---
Indication: Right lower quadrant and right flank pain following dialysis. Multiple contiguous axial images obtained through the abdomen and pelvis without contrast as ordered. Comparison: June 13, 2013. Lung bases demonstrates worsening cardiomegaly with now pulmonary edema and tiny right base effusion. Again anasarca. There is increasing moderate abdominal and pelvic ascites. No walled off fluid collection or free air. Stable bilateral renal atrophy, vascular calcifications, and left mid renal exophytic cyst. Again previous cholecystectomy. Remaining liver, spleen, adrenal glands, ureters, bladder, and uterus appear unremarkable for noncontrast exam. There remains moderate aortoiliac calcifications without AAA. Osseous structures intact again with degenerative changes throughout the spine. There is now a midline fluid filled epigastric ventral hernia. Impression: 1. Worsening abdominal/pelvic ascites. 2. New small epigastric ventral hernia. 3. Stable bilateral renal atrophy and scattered vascular calcifications presumed relating to chronic medical renal disease. 4. Stable left renal cyst. 5. Worsening cardiomegaly with again anasarca and new tiny right effusion concerning for cardiac decompensation. Comment: Preliminary interpretation was made by [facility]. No discrepancy. CTDI 23.62
--- NOTE | 2017-06-06 11:46 | PCM.HP ---
History of Present Illness - Chief Complaint Chief Complaint: UTI History of Present Illness: is a 62 year old female. Medications & Allergies Home Medications: Home Medication List Allopurinol 100 mg [Zyloprim 100 mg] 100 mg PO DAILY 10/27/12 [History Confirmed 10/05/16] Calcitriol 0.25 mg PO UD 10/27/12 [History Confirmed 10/05/16] Clopidogrel Bisulfate 75 mg [PLAVIX 75 MG Tablet] 75 mg PO DAILY 10/27/12 [ History Confirmed 10/05/16] Doxycycline Hyclate 100 mg [Vibramycin 100 MG] 100 mg PO BID 10/27/12 [ History Confirmed 10/05/16] Fenofibrate Nanocrystallized [Tricor] 48 mg PO DAILY 10/27/12 [History Confirmed 10/05/16] Insulin Glargine,Hum.rec.anlog [Lantus] 50 unit SQ BID 10/27/12 [History Confirmed 10/05/16] Insulin Lispro [Humalog] 35 units SQ TID 10/27/12 [History Confirmed 10/05/16] Lisinopril 10 mg PO HS 10/27/12 [History Confirmed 10/05/16] Magnesium Oxide 400 mg [Mag-Ox 400] 400 mg PO BID 10/27/12 [History Confirmed 10/05/16] Metoprolol Tartrate 50 mg PO BID 10/27/12 [History Confirmed 10/05/16] Niacin/Simvastatin [Simcor 500-20 mg Tablet] 500 mg PO HS 10/27/12 [History Confirmed 10/05/16] Nitroglycerin [Nitrostat] 0.4 mg SL PRN 10/27/12 [History Confirmed 10/27/12] Omeprazole [Prilosec] 20 mg PO DAILY 10/27/12 [History Confirmed 10/05/16] Raloxifene HCl 60 mg [Evista 60 MG] 60 mg PO DAILY 10/27/12 [History Confirmed 10/05/16] Rosuvastatin Calcium [Crestor] 10 mg PO HS 10/27/12 [History Confirmed 10/05/16] Naproxen 375 mg [Naprosyn 375 mg] 375 mg PO Q8H #30 tablet 09/26/16 [Rx Confirmed 10/05/16] Hydrocodone Bit/Acetaminophen [Vicodin Es 7.5-750 mg Tablet] 1 each PO Q4-6HPRN PRN 09/27/16 [History Confirmed 10/05/16] Aspirin 81 mg PO DAILY 10/05/16 [History Confirmed 10/05/16] Allergies/Adverse Reactions: Allergies Allergy/AdvReac Type Severity Reaction Status Date / Time albuterol Allergy Mild Verified 10/05/16 08:35 - Past Medical History Past Medical History: Yes Neurological History: Peripheral Neuropathy ENT History: Cataracts Cardiac History: Angina, High Cholesterol, Hypertension, Myocardial Infarction ( [place]), Other Respiratory History: Bronchitis, COPD Endocrine Medical History: Diabetes Type II, Hyperthyroidism Musculoskelatal History: Arthritis GI Medical History: GERD, Gallbladder Disease History: Dialysis, Renal Disease Pyscho-Social History: Depression Reproductive Disorders: No Pertinent History Comment: HAS HAD 4 WAY BY-PASS AND HAS 8 STENTS; O.A. IN BOTH HANDS, LEFT MIDDLE FINGER TRIGGER FINGER; HX OF BILATERAL ANKLE FRACTURES AT SAME TIME; HAS SINCE REFRACTURED ANKLE; RECENT FX PATELLA LEFT SECONDARY TO FALL; HAS DIALYSIS 3X/WK FOR 4 HOURS/DAY. fistula to left wrist with wrist deformation due to fall - Female History Hx Last Menstrual Period: na Are you now?: No - Past Surgical History Past Surgical History: Yes Neuro Surgical History: No Pertinent History Cardiac History: CABG, Cardiac Stent, Internal Defibrillator, Pacemaker Respiratory Surgery: Other GI Surgical History: Cholecystectomy Genitourinary Surgical Hx: Other Musculskeletal Surgical Hx: Orthopedic Surgery Female Surgical History: No Pertinent History, Section Other Surgical History: carpal tunnel. a/v fistula, catheter for dialysis, In E.R. 09/27/16 with fx right lower arm/wrist, Left knee cap (fx,shattered per pt) - Social History Smoking Status: Current every day smoker How long have you smoked: 30 Exposure to second hand smoke: Yes Alcohol: None Drug Use: none Significant Family History: diabetes, hypertension - Physical Exam Vital Signs: Vital Signs - 24 hr Temp Pulse Resp BP Pulse Ox 06/06/17 11:37 100 H 20 97 06/06/17 10:00 97.8 F 87 20 141/90 98 06/06/17 08:00 97.8 F 92 H 20 128/77 98 06/06/17 07:52 97.8 F 85 20 135/77 96 06/06/17 06:42 97.8 F 85 21 118/69 100 Oxygen-Last 24 hours O2 Percentage 3 Liters = 32% O2 Percentage 3 Liters = 32% O2 Percentage 3 Liters = 32% O2 Percentage 3 Liters = 32% Results - Labs Lab/Micro Results: Accuchecks Date 06/06/17 Time 06:59 Accucheck Value: 146 Lab Results-Last 24 Hours 06/06/17 06/06/17 Range/Units 06:27 09:14 Troponin I 0.022 0.023 (0.000-0.056) ng/ml Accuchecks Date 06/06/17 Time 06:59 Accucheck Value: 146 - Other Procedures and Tests Respiratory Therapy 06/06/17 11:37 Oxygen NASAL CANNULA 3 lpm 06/07/17 05:00 EKG ONCE 06/08/17 05:00 EKG ONCE 06/09/17 05:00 EKG ONCE Assessment/Plan (1) Abdominal pain Current Visit: Yes Status: Acute Assessment & Plan: suprapubic pain radiating to RLQ. However, RUQ is tender on exam. She thinks she no longer has her gallbladder. Treating for in the hopes that will improve her abdominal pain. CT abd/pelvis without acute findings. Code(s): R10.9 - UNSPECIFIED ABDOMINAL PAIN (2) Vomiting Current Visit: Yes Status: Acute Qualifiers: Vomiting type: unspecified Vomiting Intractability: intractable Nausea presence: with nausea Qualified Code(s): R11.2 - Nausea with vomiting, unspecified Assessment & Plan: She is currently trying to tolerate ice chips. Code(s): R11.10 - VOMITING, UNSPECIFIED (3) UTI (urinary tract infection) Current Visit: Yes Status: Acute Qualifiers: Urinary tract infection type: acute cystitis Hematuria presence: with hematuria Qualified Code(s): N30.01 - Acute cystitis with hematuria Assessment & Plan: She does not produce much urine as she's on dialysis and she states she doesn't drink much, but she did give a UA and it does have numerous WBC in it, so I will go ahead and run a Urine culture and keep her on IV rocephin. Code(s): N39.0 - URINARY TRACT INFECTION, SITE NOT SPECIFIED (4) Renal failure Current Visit: No Status: Acute Qualifiers: Renal failure chronicity: chronic Chronic kidney disease stage: on chronic dialysis Qualified Code(s): N18.6 - End stage renal disease; Z99.2 - Dependence on renal dialysis Assessment & Plan: She is scheduled for dialysis Wednesday (06/08/17).
[2017-06-06] MEDS: Ecotrin 325 MG PO SCH (12:59)
[2017-06-06] MEDS ORDERED: MORPHINE SULFATE 4 MG INJ IV PRN (16:08)
[2017-06-06] MEDS ORDERED: ROCEPHIN 1 Gm-D5w 50 ml Bag** 1 G/50 ML IVPB IV SCH (22:00)
[2017-06-07] MEDS: Norco 10/325 MG Tablet PO PRN ×2 (00:05→06:20)
--- NOTE | 2017-06-07 10:54 | PCM.DS ---
Discharge Summary Date of Admission: 06/06/17 05:53 Admitting Physician: FREDY MELENDEZ Primary Care Provider: NATE BAE Allergies Allergies albuterol Allergy (Mild, Verified 10/05/16 08:35) Hospital Summary - Hospital Course Hospital Course: 62 year old female reports to the emergency department with nausea and dry heaves following dialysis. She has chronic renal failure and has dialysis on Tu/Thur/Sat. She is tolerating po intake now, has no further nausea and wants to go home today. She refuses the thought of transfer to [facility] or [place] for dialysis, states she wants to go home and have her regular scheduled dialysis in [place] tomorrow. - Vitals & Intake/Output Vital Signs: Vital Signs Temperature 97.7 F 06/07/17 08:00 Pulse Rate 86 06/07/17 08:00 Respiratory Rate 18 06/07/17 08:00 Blood Pressure 116/45 06/07/17 08:00 O2 Sat by Pulse Oximetry 98 06/07/17 08:00 Oxygen-Last Documented O2 Percentage 3 Liters = 32% Intake & Output: Intake & Output 06/04/17 06/05/17 06/06/17 06/07/17 11:59 11:59 11:59 11:59 Intake Total 720 Output Total 20 Balance 700 Weight 94.1 kg - Lab Result Diagrams: 06/06/17 03:15 06/06/17 03:15 Lab Results-Last 24 Hrs: Accuchecks Date 06/07/17 Date 06/06/17 Date 06/06/17 Date 06/06/17 Time 06:37 Time 21:34 Time 16:53 Time 11:51 Accucheck Value: 98 Accucheck Value: 111 Accucheck Value: 151 Accucheck Value: 135 Lab Results-Last 24 Hours 06/06/17 06/06/17 06/07/17 Range/Units 12:15 15:29 05:00 Troponin I 0.026 0.028 (0.000-0.056) ng/ml Triglycerides 86 (30-200) mg/dL Cholesterol 103 (100-200) mg/dL LDL Cholesterol 51 (5-99) mg/dL HDL Cholesterol 31 L (35-60) mg/dL Heart Disease Risk Ratio 3.3 Micro Results-Entire Visit: Accuchecks Date 06/07/17 Date 06/06/17 Date 06/06/17 Date 06/06/17 Time 06:37 Time 21:34 Time 16:53 Time 11:51 Accucheck Value: 98 Accucheck Value: 111 Accucheck Value: 151 Accucheck Value: 135 - Procedures and Test Procedures and Tests throughout Hospitalization: Therapy Orders & Screens 06/06/17 11:30 EKG ONCE Comment: 06/06/17 11:37 Oxygen NASAL CANNULA 3 lpm Comment: Diagnosis: UTI 06/07/17 05:00 EKG ONCE Comment: 06/08/17 05:00 EKG ONCE Comment: 06/09/17 05:00 EKG ONCE Comment: Discharge Exam General Appearance: no apparent distress, other (appears older than stated age) Skin Exam: other (deeply pigmented) Respiratory Exam: normal breath sounds, lungs clear, No respiratory distress Cardiovascular Exam: regular rate/rhythm, normal heart sounds Gastrointestinal/Abdomen Exam: soft, No tenderness, No mass Extremity Exam: other (right foot dressed, right forearm with fistula and deformity at wrist) Final Diagnosis/Problem List - Final Discharge Diagnosis/Problem (1) Chronic renal failure Current Visit: Yes Status: Acute Assessment & Plan: will resume dialysis tomorrow in [place], reviewed scans and results with the patient. I feel as though she is likely at her baseline, I see nothing acute on exam. will tx UTI and can f/u on culture tomorrow with Dr Bae. troponin is minimally elevated which is explained by her renal failure in my opinion, also elevated bnp makes sense in light of her dialysis status. she has no chest pain or dyspnea and has not had these complaints. she has home oxygen (2) Elevated troponin Current Visit: Yes Status: Acute (3) UTI (urinary tract infection) Current Visit: Yes Status: Acute Assessment & Plan: will send home on keflex emperically (4) Vomiting Current Visit: Yes Status: Acute - Discharge Disposition: Home, Self-Care Condition: Good Prescriptions: New Cephalexin Mh 500 mg [Keflex 500 mg] 500 mg PO TID #21 capsule Continue Nortriptyline HCl 10 mg PO DAILY No Action Clopidogrel Bisulfate 75 mg [PLAVIX 75 MG Tablet] 75 mg PO DAILY Raloxifene HCl 60 mg [Evista 60 MG] 60 mg PO DAILY Nitroglycerin [Nitrostat] 0.4 mg SL Q5MIN PRN MR X 3 PRN PRN Reason: Chest Pain Niacin/Simvastatin [Simcor 500-20 mg Tablet] 500 mg PO HS Magnesium Oxide 400 mg [Mag-Ox 400] 400 mg PO BID Allopurinol 100 mg [Zyloprim 100 mg] 300 mg PO UD Lisinopril 10 mg PO HS Aspirin 81 mg PO DAILY Polyethylene Glycol 3350 17 gm [Miralax Powder 17GM PACKET] 17 gm PO DAILY PANTOPRAZOLE 40 mg Tablet [Protonix 40MG Tablet] 40 mg PO QAM Pregabalin 25 mg [Lyrica 25 MG] 25 mg PO BID Losartan Potassium 50 mg [Cozaar 50 MG] 25 mg PO DAILY Levothyroxine Sodium 75 Mcg [Synthroid 75 Mcg] 75 mcg PO DAILY Ipratropium/Albuterol Sulfate [Iprat-Albut 0.5-3(2.5) mg/3 ml] 3 ml IH QID Hydrocodone/APAP 10/325 mg [[place] 10/325 MG Tablet] 1 tab PO TIDPRN PRN PRN Reason: Pain Fluticasone Propionate [Flonase NASAL] 2 spray NS DAILY PRN PRN PRN Reason: Allergies Ferrous Sulfate 325 mg [Feosol 325 mg] 325 mg PO DAILY Diphenhydramine HCl 25 mg [Benadryl 25 mg Capsule] 2 cap PO Q6HPRN PRN PRN Reason: Allergies Cyclobenzaprine HCl 10 mg [Cyclobenzaprine 10 MG] 10 mg PO BIDPRN PRN PRN Reason: Muscle Spasms Atorvastatin Calcium [Lipitor 20MG Tablet] 20 mg PO DAILY Pyridoxine HCl (Vitamin B6) [Vitamin B-6] 50 mg PO DAILY Follow up with: NATE BAE [Primary Care Provider] -
[2017-06-07 10:56] VITALS: BP 111/52; PULSE 79; O2SAT 97
[2017-06-07] MEDS: Ecotrin 325 MG PO SCH (11:03)
== END 2017-06-07 11:50 | disposition home or self-care (01) ==
LOC: ED 02:32 → MED SURG 05:53 → ICU 06:15
PROVIDERS: ADMIT Family Medicine; ATTEND Family Medicine
DX: I12.0 Hypertensive chronic kidney disease with stage 5 chronic kidney disease or end stage renal disease (principal); N18.6 End stage renal disease; N39.0 Urinary tract infection, site not specified; R79.89 Other specified abnormal findings of blood chemistry; R11.10 Vomiting, unspecified; G62.9 Polyneuropathy, unspecified; J44.9 Chronic obstructive pulmonary disease, unspecified; I25.2 Old myocardial infarction; E11.9 Type 2 diabetes mellitus without complications; I10 Essential (primary) hypertension; E05.90 Thyrotoxicosis, unspecified without thyrotoxic crisis or storm; K21.9 Gastro-esophageal reflux disease without esophagitis; Z99.2 Dependence on renal dialysis; Z95.810 Presence of automatic (implantable) cardiac defibrillator; Z79.899 Other long term (current) drug therapy; Z95.1 Presence of aortocoronary bypass graft
CPT/HCPCS: 36415; 74176; 80053; 80061; 81000; 82150; 82962; 83605; 83690; 83721; 83880; 84484; 84703; 85025; 87077; 87086; 87186; 93005; 96360; 96361; 96365; 96374; 96375; 99285; G0378; J0696; J1170; J1200; J2270; J2405; A9270-GY

== ENCOUNTER 2017-09-10 10:35 | Emergency (ER) | payer MEDICARE ==
[2017-09-10] MEDS ORDERED: D50W 50 ml Abboject IV ONE ×4 (10:45→14:59)
[2017-09-10] MEDS ORDERED: Sodium Chloride 0.9% 250 ML 250 ML IV ONE (11:11)
--- NOTE | 2017-09-10 11:12 | ERPHSYRPT ---
- History of Present Illness Time Seen by Provider: 09/10/17 11:02 Source: patient Exam Limitations: no limitations Patient Subjective Stated Complaint: Medics states "She slid out of her chair next to a wall, no injuries, but her FSBS was 60, we gave a tube of oral glucose and the last sugar we got was 97.". Pt states "My ears got really muffled and I slid out of my chair. I can hear a little better now and I am more with it, but the top of my head still hurts. It has hurt for over a week" Triage Nursing Assessment: Pt alert and oriented X 3, skin pwd, pt speech is slow, slighlty slurred and in full sentences. PT has boot on rt foot with a decubitous ulcer that is being treated prior to her arrival. Physician History: This is a 62-year-old white female with history of peripheral neuropathy, cataracts, angina, hypercholesterolemia, high blood pressure, myocardial infarction, renal failure on dialysis, diabetes Patient was brought by medics patient apparently slipped out of her chair onto the floor patient was noted to have a blood sugar of 66 she was given oral glucose with her blood sugar coming up to the 90s Patient arrives with a blood sugar of 62. She denies any injury she states she's had loose stools occasional headache. She has no chest pain she is not vomiting no fevers. Past medical history includes peripheral neuropathy, cataracts, angina, hypercholesterolemia, high blood pressure, myocardial infarction, bronchitis, COPD, diabetes type 2, hyperthyroidism, arthritis, GERD, gallbladder disease, renal disease, depression, degenerative disc disease, atherosclerotic coronary artery disease, pacer defibrillator, osteoarthritis, fractures. Past surgical history includes CABG, cardiac stents, pacer defibrillator, cholecystectomy, , orthopedic surgery, carpal tunnel, AV fistula, catheter for dialysis, left knee surgery, fracture right lower arm. Timing/Duration: today Severity: moderate Modifying Factors: Improves With: nothing Associated Symptoms: headaches, weakness, other (diarrhea), No nausea, No vomiting, No abdominal pain, No shortness of breath, No heartburn, No diaphoresis, No cough, No chills, No chest pain, No fever, No loss of appetite, No malaise, No rash, No syncope, No seizure Allergies/Adverse Reactions: pregabalin [From Lyrica] Allergy (Mild, Verified 12/08/17 10:53) extremely sleepy Home Medications: Allopurinol 100 mg [Zyloprim 100 mg] 300 mg PO UD 10/27/12 [History] Clopidogrel Bisulfate 75 mg [PLAVIX 75 MG Tablet] 75 mg PO DAILY 10/27/12 [History] Magnesium Oxide 400 mg [Mag-Ox 400] 400 mg PO BID 10/27/12 [History] Nitroglycerin [Nitrostat] 0.4 mg SL Q5MIN PRN MR X 3 PRN 10/27/12 [History] Raloxifene HCl 60 mg [Evista 60 MG] 60 mg PO DAILY 10/27/12 [History] Aspirin 81 mg PO DAILY 10/05/16 [History] Atorvastatin Calcium [Lipitor 20MG Tablet] 20 mg PO DAILY 06/07/17 [History] Diphenhydramine HCl 25 mg [Benadryl 25 mg Capsule] 2 cap PO Q6HPRN PRN 01/18 [History] Ferrous Sulfate 325 mg [Feosol 325 mg] 325 mg PO DAILY 06/07/17 [History] Fluticasone Propionate [Flonase NASAL] 2 spray NS DAILY PRN PRN 06/07/17 [ History] Hydrocodone/APAP 10/325 mg [[place] 10/325 MG Tablet] 1 tab PO TIDPRN PRN [History] Ipratropium/Albuterol Sulfate [Iprat-Albut 0.5-3(2.5) mg/3 ml] 3 ml IH QID 06/07 [History] Levothyroxine Sodium 75 Mcg [Synthroid 75 Mcg] 88 mcg PO DAILY 06/07/17 [ History] Losartan Potassium 50 mg [Cozaar 50 MG] 25 mg PO DAILY 06/07/17 [History] PANTOPRAZOLE 40 mg Tablet [Protonix 40MG Tablet] 40 mg PO QAM 06/07/17 [ History] Polyethylene Glycol 3350 17 gm [Miralax Powder 17GM PACKET] 17 gm PO DAILY [History] Pregabalin 25 mg [Lyrica 25 MG] 25 mg PO BID 06/07/17 [History] Pyridoxine HCl (Vitamin B6) [Vitamin B-6] 50 mg PO DAILY 06/07/17 [History] Calcitriol [Rocaltrol] 0.25 mcg DAILY 09/10/17 [History] Calcium Carbonate [Calcium] 500 mg DAILY 09/10/17 [History] Calcium Carbonate [Tums] 200 mg DAILY 09/10/17 [History] Fish Oil/Borage/Flax/Om3,6,9 1 [[place] 3-6-9 Complex Softgel] 400 mg BID [History] Insulin Glargine,Hum.rec.anlog [Lantus] 45 unit DAILY 09/10/17 [History] Ropinirole HCl [Requip] 3 mg DAILY 09/10/17 [History] Hx Tetanus, Diphtheria Vaccination/Date Given: Yes Hx Influenza Vaccination/Date Given: Yes Hx Pneumococcal Vaccination/Date Given: Yes Immunizations Up to Date: Yes - Review of Systems Constitutional: Weakness, No Fever, No Chills Eyes: No Symptoms Ears, Nose, & Throat: No Symptoms, Hearing Changes (patient states he felt full in her ears before sliding down to the floor), No Ear Pain, No Ear Discharge, No Nose Pain, No Nose Congestion, No Nose Discharge, No Sinus Drainage Respiratory: No Cough, No Dyspnea Cardiac: No Chest Pain, No Edema, No Syncope Abdominal/Gastrointestinal: Diarrhea, No Abdominal Pain, No Nausea, No Vomiting , No Constipation, No Hematemesis, No Hematochezia, No Melena, No Dysphagia, No Appetite Changes Genitourinary Symptoms: No Dysuria Musculoskeletal: No Back Pain, No Neck Pain Skin: No Rash Neurological: Headache, No Dizziness, No Focal Weakness, No Gait Changes, No Irritability, No Lethargy, No Paralysis, No Parasthesia, No Seizure, No Sensory Changes, No Speech Changes, No Tics, No Tremors, No Vertigo Psychological: No Symptoms Endocrine: No Symptoms All Other Systems: Reviewed and Negative - Past Medical History Pertinent Past Medical History: Yes Neurological History: Peripheral Neuropathy ENT History: Cataracts Cardiac History: Angina, High Cholesterol, Hypertension, Myocardial Infarction ( [place]), Other Respiratory History: Bronchitis, COPD Endocrine Medical History: Diabetes Type II, Hyperthyroidism Musculoskeletal History: Arthritis GI Medical History: GERD, Gallbladder Disease History: Dialysis, Renal Disease Psycho-Social History: Depression Female Reproductive Disorders: No Pertinent History Other Medical History: HAS HAD 4 WAY BY-PASS AND HAS 8 STENTS; O.A. IN BOTH HANDS, LEFT MIDDLE FINGER TRIGGER FINGER; HX OF BILATERAL ANKLE FRACTURES AT SAME TIME; HAS SINCE REFRACTURED ANKLE; RECENT FX PATELLA LEFT SECONDARY TO FALL; HAS DIALYSIS 3X/WK FOR 4 HOURS/DAY. fistula to left wrist with wrist deformation due to fall - Past Surgical History Past Surgical History: Yes Neuro Surgical History: No Pertinent History Cardiac: CABG, Cardiac Stent, Internal Defibrillator, Pacemaker Respiratory: Other Gastrointestinal: Cholecystectomy Genitourinary: Other Musculoskeletal: Orthopedic Surgery Female Surgical History: No Pertinent History, Section Other Surgical History: carpal tunnel. a/v fistula, catheter for dialysis, [place] 09/27/16 with fx right lower arm/wrist, Left knee cap (fx,shattered per pt) - Social History Smoking Status: Current every day smoker How long have you smoked: years Exposure to second hand smoke: Yes Alcohol Use: None Drug Use: none Patient Lives Alone: No Significant Family History: diabetes, hypertension - Female History Hx Last Menstrual Period: no more Hx Now: No - Nursing Vital Signs Nursing Vital Signs: Initial Vital Signs Temperature 98.6 F 09/10/17 10:36 Pulse Rate 62 09/10/17 10:36 Respiratory Rate 16 09/10/17 10:36 Blood Pressure 80/63 09/10/17 10:36 O2 Sat by Pulse Oximetry 95 09/10/17 10:36 Pain Scale Pain Intensity 0 - Physical Exam General Appearance: other (elderly-appearing white female she is alert oriented 3) Eye Exam: PERRL/EOMI, eyes nml inspection Ears, Nose, Throat Exam: normal ENT inspection, TMs normal, pharynx normal, moist mucous membranes Neck Exam: normal inspection, non-tender, supple, full range of motion Respiratory Exam: normal breath sounds, lungs clear, No respiratory distress Cardiovascular Exam: regular rate/rhythm, normal heart sounds, normal peripheral pulses Gastrointestinal/Abdomen Exam: soft, normal bowel sounds, No tenderness, No mass Back Exam: normal inspection, normal range of motion, No CVA tenderness, No vertebral tenderness Extremity Exam: normal inspection, normal range of motion, pelvis stable, other (skin on lower extremities darkened) Neurologic Exam: alert, oriented x 3, cooperative, normal mood/affect, nml cerebellar function, nml station & gait, sensation nml, No motor deficits Skin Exam: other (skin on lower extremities dark ( chronic)) SpO2 Interpretation: normal (95%) SpO2: 95 Oxygen Delivery: Room Air - Course Nursing assessment & vital signs reviewed: Yes EKG Interpreted by Me: RATE (59 bpm), Other (EKG: Sinus arrhythmia 59 bpm first degree AV block normal axis, complete right bundle branch block, no acute ST or T wave changes noted) - Radiology Exams Chest X-ray Interpretation: Discussed w/ radiologist (chest x-ray: Impression 1. New right-sided dialysis catheter without complications 2. Stable cardiomegaly. Negative for acute pneumonic process or congestive heart failure) - CT Exams Head CT Interpretation: Discussed w/radiologist (Head CT:1. Again minimal motion artifact. 2. No new/acute intracranial abnormalities. 3. Again incidental air bubbles along the course of the left paralysis muscle less than before\\) Ordered Tests: Active Orders 24 hr Category Date Time Status Accucheck STAT Care 09/10/17 11:00 Active Accucheck STAT Care 09/10/17 12:21 Active Accucheck STAT Care 09/10/17 14:04 Active Special Effects Specialist STAT Care 09/10/17 11:00 Active EKG-ER Only STAT Care 09/10/17 11:00 Active IV Insertion STAT Care 09/10/17 11:00 Active CHEST 1 VIEW (PORTABLE) Stat Exams 09/10/17 11:12 Completed HEAD WITHOUT CONTRAST [CT] Stat Exams 09/10/17 11:20 Completed CBC W DIFF Stat Lab 09/10/17 11:05 Completed CMP Stat Lab 09/10/17 11:05 Completed Manual Differential NC Stat Lab 09/10/17 11:05 Completed Medication Summary Generic Name Dose Route Start Last Admin Trade Name Freq PRN Reason Stop Dose Admin Sodium Chloride 250 mls @ 250 mls/hr 09/10/17 11:15 09/10/17 11:12 Sodium Chloride 0.9% 250 Ml IV 09/10/17 12:14 250 mls/hr .Q1H OLENA Administration Discontinued Medications Generic Name Dose Route Start Last Admin Trade Name Freq PRN Reason Stop Dose Admin Dextrose Confirm 09/10/17 10:45 D50w 50 Ml Abboject Administered 09/10/17 10:46 Dose 50 ml IV .STK-MED ONE Dextrose 50 ml 09/10/17 11:00 09/10/17 11:12 D50w 50 Ml Abboject IV 09/10/17 11:01 50 ml STAT ONE Administration Dextrose 50 ml 09/10/17 14:43 09/10/17 15:00 D50w 50 Ml Abboject IV 09/10/17 14:44 50 ml STAT ONE Administration Dextrose Confirm 09/10/17 14:59 D50w 50 Ml Abboject Administered 09/10/17 15:00 Dose 50 ml IV .STK-MED ONE Lab/Rad Data: Laboratory Result Diagrams 09/10/17 11:05 09/10/17 11:05 Laboratory Results 09/10/17 09/10/17 Range/Units 11:05 11:05 WBC 7.8 (4.0-10.5) K/mm3 RBC 2.36 L (4.1-5.4) M/mm3 Hgb 7.3 L (12.0-16.0) gm/dl Hct 24.6 L (35-47) % MCV 104.2 H (78-100) fl MCH 30.9 (26-32) pg MCHC 29.7 L (32-36) g/dl RDW 16.5 H (11.5-14.0) % Plt Count 22 L* (150-450) K/mm3 MPV 13.2 H (6-9.5) fl Segmented Neutrophils 48 (36.0-66.0) % Band Neutrophils 47 H (0.0-2.0) % Lymphocytes (Manual) 4 L (24-44) % Monocytes (Manual) 1 (0.0-12.0) % Differential Comment ABNORMAL Platelet Estimate DECREASED (NORMAL) Hypochromasia 2+ Macrocytosis 2+ Target Cells 1+ Sodium 136 (136-145) mEq/L Potassium 3.5 (3.5-5.1) mEq/L Chloride 98 (98-107) mEq/L Carbon Dioxide 27.9 (21-32) mEq/L Anion Gap 13.2 (5-15) MEQ/L BUN 18 (9-20) mg/dL Creatinine 2.81 H (0.55-1.30) mg/dl Estimated GFR 18 ML/MIN Glucose 64 L (70-110) MG/DL Calcium 8.4 L (8.5-10.1) mg/dL Total Bilirubin 0.60 (0.2-1.0) mg/dL AST 34 (15-37) U/L ALT 21 (12-78) U/L Alkaline Phosphatase 181 H (46-116) U/L Serum Total Protein 6.0 L (6.4-8.2) gm/dL Albumin 2.7 L (3.4-5.0) g/dL - Progress Progress: improved Progress Note: 09/10/17 12:36 This is a 62-year-old white female failure on dialysis history of peripheral neuropathy, cataracts angina, hypercholesterolemia, high blood pressure, COPD, diabetes. Patient is brought by medics with complaint that the patient slid out of her chair she was noted to have a blood sugar of 66 at home. She was given oral glucose with her blood sugar going up to 90. She is brought to the emergency room where her blood sugar was noted to be 61. She is given one amp of D50 high as her blood sugar went was 146 thereafter is just been checked is 81. Patient was noted to have a low blood pressure on arrival blood pressure was around 80 systolic she was given a 250 mL bolus of normal saline blood pressure is now stable. Patient was also complaining of a headache off-and-on and was noted to have low platelets of [address] was unremarkable. Chest x-ray was unremarkable Patient's hemoglobin was 7.3 hematocrit 24.6 white blood cell 7.8 Patient's chemistry was remarkable for glucose 64 sodium 136 potassium 3.5 chloride 98 bicarbonate 27.9 BUN 18 creatinine 2.81 Patient appears to be stable will feed patient and recheck Accu-Chek. 09/10/17 13:42 Patient apparently had gotten a dietary tray, but is unable to eat a hamburger she is provided nurses are obtaining food she can eat. 09/10/17 14:44 Patient states she is unable to eat. She states when she eats the food comes back up. The patient's nurse gave her some milk shortly thereafter she spit this up to. Patient states that this happens to her some time and she is unable to eat. I've discussed case with Dr. Giposn the patient's renal doctor. The patient's blood sugar is now 74 again. He suggests that the patient will need to be hospitalized she goes to [facility]. Will give patient D50 another amp. Will contact [facility] one call to arrange to transfer. 09/10/17 15:16 Bed is obtained from [facility] patient will be transferred - Departure Time of Disposition: 15:10 Departure Disposition: Transfer ([facility] Dr Gipson) Clinical Impression: Hypoglycemia, Swallowing disorder, History of renal dialysis, Thrombocytopenia Condition: Fair Critical Care Time: No Referrals: NATE AGARWAL [Primary Care Provider] -
[2017-09-10] MEDS ORDERED: Sodium Chloride 0.9% 250 ML 250 ML IV SCH (11:15)
[2017-09-10 11:19] LABS: Mean Cell Volume 104.2 fl (78-100); Mean Corpuscular Hemoglobin 30.9 pg (26-32); Mean Platelet Volume 13.2 fl (6-9.5); Red Blood Count 2.36 M/mm3 (4.1-5.4); Red Cell Distribution Width 16.5 % (11.5-14.0); White Blood Count 7.8 K/mm3 (4.0-10.5)
[2017-09-10 11:21] LABS: Platelet Count 22 K/mm3 (150-450)
--- NOTE | 2017-09-10 11:55 | XRAY ---
Indication: Weakness and short of breath. Hypertension. Renal failure. Comparison: December 07, 2016. Portable chest demonstrates new large bore right-sided dialysis catheter without complications. Stable cardiomegaly with previous CABG surgery. Lungs clear. Bony thorax intact again with mild osteopenia and degenerative changes. Impression: 1. New right-sided dialysis catheter without complications. 2. Stable cardiomegaly. Negative for acute pneumonic process or CHF.
--- NOTE | 2017-09-10 11:58 | XRAY ---
Indication: Headache and weakness. Low platelet count. Multiple contiguous axial images obtained through the head without contrast. Comparison: December 07, 2016. Again images through the base of the brain slightly degraded by motion artifact. Stable age-appropriate global atrophy. No acute intracranial hemorrhage, abnormal extra-axial fluid collection, or mass effect. Fourth ventricle midline without hydrocephalus. Velasco-white matter differentiation preserved. Bony calvarium intact. Visualized paranasal sinuses and mastoid air cells are clear. There are again several air bubbles along the course of the left temporalis muscle, but less than before. Impression: 1. Again minimal motion artifact. 2. No new/acute intracranial abnormalities. 3. Again incidental air bubbles along the course of the left temporalis muscle less than before. CTDI 69.66
[2017-09-10 12:03] LABS: BAND 47 % (0.0-2.0); Total Cells Counted 100
[2017-09-10 12:04] LABS: Hypochromia 2+; Macrocytosis 2+; Platelet Estimate DECREASED (NORMAL)
[2017-09-10 12:05] LABS: ALBUMIN 2.7 g/dL (3.4-5.0); ANION GAP 13.2 MEQ/L (5-15); BILIRUBIN,TOTAL 0.6 mg/dL (0.2-1.0); Carbon Dioxide 27.9 mEq/L (21-32); Potassium 3.5 mEq/L (3.5-5.1); Targert Cells 1+
[2017-09-10 13:13] VITALS: BP 75/29; PULSE 59
[2017-09-10 13:43] VITALS: O2SAT 95
== END 2017-09-10 16:42 | disposition short-term general hospital (02) ==
LOC: ED 10:35
DX: E16.2 Hypoglycemia, unspecified (principal); R13.10 Dysphagia, unspecified; Z99.2 Dependence on renal dialysis; D69.6 Thrombocytopenia, unspecified; E78.00 Pure hypercholesterolemia, unspecified; I10 Essential (primary) hypertension; E11.9 Type 2 diabetes mellitus without complications; I25.10 Atherosclerotic heart disease of native coronary artery without angina pectoris; Z95.810 Presence of automatic (implantable) cardiac defibrillator; Z95.1 Presence of aortocoronary bypass graft; Z79.899 Other long term (current) drug therapy
CPT/HCPCS: 36000; 36415; 70450; 71010; 80053; 82962; 85025; 93005; 93041; 96360; 96361; 96374; 99285